=== PATIENT | female | born 1960 | race Caucasian/White ===

== ENCOUNTER 2021-01-27 16:26 | Outpatient (REF) | payer OTHER, SELFPAY ==
--- NOTE | ~2021-01-27 | CT_ITS ---
EXAMINATION: CT CHEST WITHOUT CONTRAST CLINICAL INFORMATION: Other nonspecific abnormal finding lung field COMPARISON: Previous chest x-ray most recent February [address] most recent October 2018 TECHNIQUE: Multidetector volumetric CT imaging of the chest was done. Axial MIP volume rendering provided. Sagittal and coronal reformatted images were obtained. This CT examination was performed using dose optimization techniques as appropriate, variously including the following: *Automated exposure control *Adjustment of mA and/or kV according to patient size (this includes techniques or standardized protocols for targeted exams where dose is matched to indication/reason for exam; i.e. 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 There is biapical pleural and parenchymal scarring, right greater than left. There is slight volume loss to the left upper lobe. There is an irregular parenchymal density probably representing scarring seen in the left upper lobe that is stable, for example axial image 165 series 5.. There is a new spiculated left lower lobe nodule suspicious for neoplasm. This measures 1 x 1.2 cm. There are small right upper lobe 3 mm nodule axial image 236 series 5 that is stable. There is a 3 mm right lower lobe nodule axial image 319 series 5 that is stable. There is a 4 mm right lower lobe nodule axial image 339 series 5 that is stable. No endobronchial or endotracheal lesion is seen. MEDIASTINUM: The mediastinum is normal. There are no enlarged mediastinal or hilar lymph nodes. PLEURA: There is no pleural effusion. No pleural mass or thickening. AXILLA: No lymphadenopathy. UPPER ABDOMEN: Unremarkable. OSSEOUS STRUCTURES: Unremarkable. CT/CT chest wo con IMPRESSION: New 1 x 1.2 cm spiculated left lower lobe pulmonary nodule suspicious for neoplasm. Severe. Stable volume loss and probable scarring in the left upper lobe. Stable small right upper and right lower lobe pulmonary nodules. Findings will be communicated by the [employer] work flow printed circuit photographer Tia Mobley on 01/28/2021.
== END 2021-01-27 16:27 | disposition home or self-care (01) ==
LOC: HO.CT 16:26
PROVIDERS: Visit Provider Internal Medicine Pulmonary Disease
DX: R91.8 Other nonspecific abnormal finding of lung field (principal)
CPT/HCPCS: 71250

== ENCOUNTER → 2021-03-09 14:39 | Outpatient (BNVA) | payer OTHER, SELFPAY | PROVIDERS: PCP Internal Medicine; Visit Provider Internal Medicine Pulmonary Disease ==

== ENCOUNTER 2021-03-22 16:04 | Outpatient (REF) | payer OTHER, SELFPAY ==
--- NOTE | 2021-03-22 17:48 | PFT_ITS ---
Forced vital capacity moderately reduced. FEV1, CPT15-63, and MVV are all markedly decreased. Post bronchodilator therapy, there is a small, but significant improvement in all the flow volumes. Total lung capacity is normal. Residual volume markedly increased. Diffusion capacity is markedly decreased. CONCLUSION: Very severe obstructive airway disorder. Minimal improvement after bronchodilator therapy is noted. Clinical correlation recommended. MD CB Pulliam/MICHAEL / [phone]
[2021-03-22 17:50] LABS: Hematocrit 48.2 % (37-47); Mean Corpuscular HGB Conc 33.2 g/dl (31.0-35.0); Mean Corpuscular Hemoglobin 31.6 pg (27.0-33.0); Mean Corpuscular Volume 95.3 fL (80-98); Mean Platelet Volume 11.7 fL (9.4-12.3); Platelet Count 218 X10*3/uL (160-400); Red Blood Count 5.06 X10*6/uL (4.20-5.50); Red Cell Distribution Width 13.1 % (11.0-16.0); White Blood Count 8.7 X10*3/uL (4.8-10.8)
[2021-03-22 18:04] LABS: Prothrombin Time 11.5 SEC (9.9-13.0)
== END 2021-03-22 16:05 | disposition home or self-care (01) ==
LOC: HO.RESP 16:04
PROVIDERS: Absent Provider Internal Medicine; PCP Internal Medicine; Visit Provider Internal Medicine Pulmonary Disease
DX: J44.9 Chronic obstructive pulmonary disease, unspecified (principal); R91.8 Other nonspecific abnormal finding of lung field
CPT/HCPCS: 36415; 85027; 85610; 94060; 94727; 94729

== ENCOUNTER 2021-03-23 09:21 | Outpatient (REF) | payer OTHER, SELFPAY ==
--- NOTE | ~2021-03-23 | PE_ITS ---
EXAMINATION: PET-CT SKULL TO THIGH CLINICAL INFORMATION: Spiculated lung nodule left lower lobe. COMPARISON: CT chest 01/27/2021 TECHNIQUE: Following intravenous administration of 13.9 mCi of FDG in left antecubital vein, a whole-body PET emission scan was obtained approximately 90 minutes later. 3.[address] transmission scan was obtained for correlative imaging without oral and IV contrast. Serum baseline glucose measures 98 mg/dL. DLP 223 mGy-cm. FINDINGS: SKULL AND NECK: There is no abnormal metabolic activity seen in the visualized brain parenchyma or the neck. Normal activity is seen in bilateral parotid and thyroid glands. CHEST: There is no abnormal metabolic activity seen in the lung parenchyma. Spiculated lesion in the left lower lobe measuring 1.[address] 01/27/2021 appears 7 mm linear density in left lower lobe on axial image 164/102. Previously visualized 3 mm nodule right lower lobe on axial CT image 169 and 172/102 are not metabolically active or smaller on CT. A triangular-shaped nodule in the right upper lobe on the previous study is also smaller measuring 2 mm on slice 189/102. No abnormal metabolic activity is seen. There is no metabolic activity seen in the mediastinum or the axilla. Normal metabolic activity is seen in the left ventricle. There are diffuse emphysematous changes in the lungs. No abnormal mediastinal or axillary lymph nodes seen. There are benign small shotty lymph nodes in the pretracheal space. The thoracic aorta is normal caliber. Thyroid lobes are symmetric and normal. ABDOMEN AND PELVIS: No abnormal activity is seen in the abdomen and pelvis. Normal metabolic activity is seen in the kidney pelvis and ureters bilaterally. On CT imaging, the visualized liver, spleen, pancreas, and bilateral adrenal glands are unremarkable. There are no radiopaque gallstones. The liver is normal density and size and appears unremarkable. PELVIS: No abnormal metabolic activity is seen. No abnormality is seen on CT abdomen exam. MSK: Unremarkable. PET/PET CT fusion skull to thigh IMPRESSION: No abnormal metabolic activity seen in the chest nodules or the mediastinum to suspect any primary active lung nodule or adenopathy. The 2 right lower lobe nodules and solitary right upper lobe nodule and the left upper lobe nodule are not visualized on PET study. They are small in size on the present CT exam.
== END 2021-03-23 09:22 | disposition home or self-care (01) ==
LOC: HO.PET 09:21
PROVIDERS: PCP Internal Medicine; Visit Provider Internal Medicine Pulmonary Disease
DX: Z13.89 Encounter for screening for other disorder (principal)

== ENCOUNTER 2021-04-01 11:14 | Day surgery (SDC) | payer OTHER, SELFPAY ==
--- NOTE | ~2021-04-01 | CT_ITS ---
EXAMINATION: CT CHEST WITHOUT CONTRAST CLINICAL INFORMATION: Prebiopsy scan. Left lower lobe lung nodule COMPARISON: None CT PET 03/23/2021 and chest exam 01/27/2021. TECHNIQUE: Following explaining procedure, benefits and risk, a written consent was obtained. Patient was placed and right decubitus view and preliminary imaging was obtained. The exam was canceled as there is significant improvement in the left lower lobe pulmonary nodule. Also there is no metabolic activity seen on the recent PET study 03/23/2021. The exam was canceled. This CT examination was performed using dose optimization techniques as appropriate, variously including the following: *Automated exposure control *Adjustment of mA and/or kV according to patient size (this includes techniques or standardized protocols for targeted exams where dose is matched to indication/reason for exam; i.e. extremities or head) *Use of iterative reconstruction technique DLP: 38 mGy-cm CT/CT chest wo con FINDINGS/IMPRESSION: On preliminary CT imaging there is no left lower lobe nodules seen. There is a thin linear stranding visualized. No corresponding PET abnormality seen on recent performed exam 03/23/2021. The biopsy was canceled. The results were notified to Dr. Helder ordoñez. A follow-up CT chest in 3 months will be obtained. The patient was subsequently discharged
[2021-04-01 07:50] VITALS: BMI 19.2
[2021-04-01 11:34] LABS: MANUAL DIFF FLAG NO
[2021-04-01 11:37] LABS: Basophils Absolute Auto 0.1 X10*3/uL (0.0-0.2); Basophils Percent Auto 0.6 % (0-2); Eosinophils Absolute Auto 0.4 X10*3/uL (0.0-0.4); Eosinophils Percent Auto 4.3 % (0-4); Hematocrit 47.4 % (37-47); Hemoglobin 15.8 g/dl (12.0-16.0); Imm Gran Abs Auto 0.03 X10*3/uL (0.00-0.03); Imm Gran Pct Auto 0.4 % (0.0-0.4); Lymphocytes Absolute Auto 2.9 X10*3/uL (1.2-4.9); Lymphocytes Percent Auto 33.9 % (20-40); Mean Corpuscular HGB Conc 33.3 g/dl (31.0-35.0); Mean Corpuscular Hemoglobin 31.5 pg (27.0-33.0); Mean Corpuscular Volume 94.6 fL (80-98); Mean Platelet Volume 10.8 fL (9.4-12.3); Monocytes Absolute Auto 0.6 X10*3/uL (0.1-1.2); Monocytes Percent Auto 7.2 % (2-11); Neutrophils Absolute Auto 4.5 X10*3/uL (2.0-8.3); Neutrophils Percent Auto 53.6 % (45-73); Platelet Count 247 X10*3/uL (160-400); Red Blood Count 5.01 X10*6/uL (4.20-5.50); Red Cell Distribution Width 13.1 % (11.0-16.0); White Blood Count 8.4 X10*3/uL (4.8-10.8)
[2021-04-01 11:59] LABS: Prothrombin Time 10.9 SEC (9.9-13.0)
[2021-04-01 12:02] LABS: Partial Thromboplastin Time 33.8 SEC (24.1-38.0)
[2021-04-01 13:50] VITALS: BP 122/85; PULSE 90; RESP 20; TEMP 36.2; O2SAT 96
== END 2021-04-01 14:10 | disposition home or self-care (01) ==
LOC: HO.SSS 11:15
PROVIDERS: Radiology Diagnostic Radiology; PCP Internal Medicine; Visit Provider Internal Medicine Pulmonary Disease
DX: R91.1 Solitary pulmonary nodule (principal); J44.9 Chronic obstructive pulmonary disease, unspecified; Z99.81 Dependence on supplemental oxygen; Z79.51 Long term (current) use of inhaled steroids
CPT/HCPCS: 36415; 71250; 85025; 85610; 85730; J2250; J3010

== ENCOUNTER 2021-09-22 15:58 | Outpatient (REF) | payer OTHER, SELFPAY ==
--- NOTE | ~2021-09-22 | MM_ITS ---
EXAMINATION: MM SCREENING DIGITAL BREAST TOMOSYNTHESIS, BILATERAL CLINICAL INFORMATION: Screening. Asymptomatic. The lifetime risk of breast cancer based on the Tyrer-Cuzick Model is 12%. COMPARISON: Mammography: 04/13/2020, 03/10/2016, 07/28/2012 TECHNIQUE: Digital breast tomosynthesis is performed in both the craniocaudal and mediolateral oblique views along with computer-aided detection (CAD). Synthesized 2D images are generated from the tomosynthesis. FINDINGS: The breasts are heterogeneously dense, which may obscure small masses (ACR BI-RADS breast composition Category c). There are no significant masses, abnormal calcifications, or other abnormalities. Parenchymal pattern is similar to prior studies. Scattered minor asymmetries are stable. There is no developing density or architectural abnormality. Again, there are scattered punctate round calcifications greater upper quadrants. The axilla and skin contours are unremarkable. No significant changes. MM/MM tomosynthesis screening BI IMPRESSION: No significant changes from prior exams. ASSESSMENT: BI-RADS 2: Benign RECOMMENDATION: Routine annual mammography screening. This patient's information was entered into a reminder system with a target due date for their next mammogram.
== END 2021-09-22 15:59 | disposition home or self-care (01) ==
LOC: HO.MAMMO 15:58
PROVIDERS: PCP Internal Medicine; Visit Provider Internal Medicine
DX: Z12.31 Encounter for screening mammogram for malignant neoplasm of breast (principal)
CPT/HCPCS: 77063; 77067

== ENCOUNTER 2022-03-16 13:19 | Outpatient (REF) | payer OTHER, SELFPAY ==
--- NOTE | ~2022-03-16 | CT_ITS ---
EXAMINATION: CT CHEST WITHOUT CONTRAST CLINICAL INFORMATION: Follow-up pulmonary nodules COMPARISON: Previous chest CT most recent March 2021 TECHNIQUE: Multidetector volumetric CT imaging of the chest was done. Axial MIP volume rendering provided. Sagittal and coronal reformatted images were obtained. This CT examination was performed using dose optimization techniques as appropriate, variously including the following: *Automated exposure control *Adjustment of mA and/or kV according to patient size (this includes techniques or standardized protocols for targeted exams where dose is matched to indication/reason for exam; i.e. 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 LUNGS: There is evidence of severe emphysema. There is biapical pleural and parenchymal scarring. There is linear scarring seen in the posterior lateral left upper lobe that is stable. There is a 4 mm calcified right upper lobe nodule axial image 76 series 5 that is stable. There is a 3 mm lower lobe axial image 252 series 5 that is stable. There are 2 new right lower lobe nodules measuring 4 mm axial image 296 series 5 and 5 mm axial image 309 series 5. MEDIASTINUM: Mild coronary artery calcification. The mediastinum is otherwise normal. PLEURA: There is no pleural effusion. No pleural mass or thickening. AXILLA: No lymphadenopathy. UPPER ABDOMEN: There is a stone in the upper pole of the left kidney measuring 4 mm. OSSEOUS STRUCTURES: Old left-sided rib fractures. CT/CT chest wo con IMPRESSION: Severe emphysema. Stable biapical and left upper lobe scarring. 2 new right lower lobe nodules largest measuring 5 mm. Otherwise small pulmonary nodules are stable. Mild coronary artery calcification. Chest CT follow-up recommended. Fleischner guidelines were followed.
== END 2022-03-16 13:20 | disposition home or self-care (01) ==
LOC: HO.CT 13:19
PROVIDERS: Visit Provider Internal Medicine Pulmonary Disease
DX: R91.8 Other nonspecific abnormal finding of lung field (principal)
CPT/HCPCS: 71250

== ENCOUNTER → 2022-03-28 15:25 | Outpatient (REF) | payer OTHER, SELFPAY | LOC: HO.SL 15:25 | PROVIDERS: Visit Provider Internal Medicine Pulmonary Disease | DX: G47.33 Obstructive sleep apnea (adult) (pediatric) (principal) | CPT/HCPCS: 95806 ==

== ENCOUNTER 2022-07-21 16:27 | Outpatient (REF) | payer OTHER, SELFPAY ==
--- NOTE | ~2022-07-21 | CT_ITS ---
EXAMINATION: CT CHEST WITHOUT CONTRAST CLINICAL INFORMATION: Follow-up pulmonary nodules COMPARISON: Previous chest CT scans most recent March 2022 TECHNIQUE: Multidetector volumetric CT imaging of the chest was done. Axial MIP volume rendering provided. Sagittal and coronal reformatted images were obtained. This CT examination was performed using dose optimization techniques as appropriate, variously including the following: *Automated exposure control *Adjustment of mA and/or kV according to patient size (this includes techniques or standardized protocols for targeted exams where dose is matched to indication/reason for exam; i.e. 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 LUNGS: There is evidence of severe emphysema. There is biapical pleural and parenchymal scarring. There is linear scarring seen in the posterior lateral left upper lobe that is stable. There are small pulmonary nodules that are stable from most recent exam March 2022, largest measuring 5 mm in the right lower lobe axial image 385 series 5. No new pulmonary nodule. No endobronchial or endotracheal lesion. MEDIASTINUM: The mediastinum is normal. CORONARY ARTERY CALCIFICATION: Mild PLEURA: There is no pleural effusion. No pleural mass or thickening. AXILLA: No lymphadenopathy. UPPER ABDOMEN: Small left renal stone. OSSEOUS STRUCTURES: Old left rib fractures. CT/CT chest wo IV con IMPRESSION: Severe emphysema. Stable pulmonary nodules from most recent exam March 2022. Fleischner guidelines were followed.
== END 2022-07-21 16:28 | disposition home or self-care (01) ==
LOC: HO.CT 16:27
PROVIDERS: Visit Provider Internal Medicine Pulmonary Disease
DX: R91.8 Other nonspecific abnormal finding of lung field (principal)
CPT/HCPCS: 71250

== ENCOUNTER 2022-07-21 16:50 | Emergency (ER) | payer OTHER, SELFPAY | END 2022-07-21 18:13 | disposition left against medical advice (07) | PROVIDERS: Emergency Provider Emergency Medicine; PCP Internal Medicine | DX: R06.02 Shortness of breath (principal) ==

== ENCOUNTER → 2022-07-22 13:46 | Outpatient (BNVA) | payer OTHER, SELFPAY | PROVIDERS: PCP Internal Medicine; Visit Provider Internal Medicine Pulmonary Disease | DX: J44.9 Chronic obstructive pulmonary disease, unspecified (principal); F41.1 Generalized anxiety disorder; R91.8 Other nonspecific abnormal finding of lung field; Z99.81 Dependence on supplemental oxygen | CPT/HCPCS: 94640 ==

== ENCOUNTER → 2023-02-02 14:40 | Outpatient (BNVA) | payer OTHER, SELFPAY | PROVIDERS: PCP Internal Medicine; Visit Provider Dietitian, Registered | DX: R63.4 Abnormal weight loss (principal); Z68.1 Body mass index [BMI] 19.9 or less, adult; Z71.3 Dietary counseling and surveillance | CPT/HCPCS: 97802 ==

== ENCOUNTER 2023-02-21 14:23 | Outpatient (AMB) | payer OTHER, SELFPAY ==
--- NOTE | 2023-02-21 14:26 | MHC.OFFVIS ---
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 Patient returns to follow-up complaining of slowly worsening dyspnea despite using Spiriva, Symbicort, theophylline, duo nebs, and albuterol MDI.?? Her pulmonary nodule biopsy was canceled by Interventional Radiology as it was negative on PET scan. She does complain of significant nausea and associated poor appetite and weight loss. PFSH Family History Other Mental health disorder Substance use disorder Social History Housing: House Alcohol intake: current Alcohol intake frequency: a few times a week Patient Tobacco Use Status: Current everyday Tobacco user Cigarette Packs Per Day: 0.5 e-Cigarette/Vaping Use: Never Used service: No Current occupational status: unemployed Cognitive needs: No Hearing needs: No Vision needs: No Review of Systems Const Denies daytime sleepiness, Denies excessive sweating, Denies fatigue, Denies fever(s), Denies lethargy, Denies malaise, Denies night sweats, Denies snoring and Reports weight loss Eyes Denies blurry vision and Denies itchy eyes ENT Denies nasal congestion, Denies post nasal drip, Denies sinus pain, Denies sinus pressure and Denies other ( Thrush) Card Denies chest pain, Denies pedal edema, Denies dyspnea, Reports dyspnea on exertion, Denies orthopnea and Denies paroxysmal nocturnal dyspnea Resp Denies cough, Denies hemoptysis, Denies excessive phlegm production, Denies dyspnea, Reports dyspnea on exertion, Denies snoring and Denies wheezing GI Denies abdominal pain and Denies heartburn Musc Denies myalgias, Denies arthralgias and Denies joint swelling Skin/Breast Denies rash Neuro Denies memory loss and Denies seizure-like activity Psych Denies abnormal sleep pattern, Denies anxiety and Denies memory loss Endo Denies excessive sweating, Denies fatigue and Denies heat intolerance Michael/Lymph Denies easy bruising Aller/Immun Denies itchy eyes, Denies seasonal rhinorrhea and Denies wheezing Physical Exam Vital Signs: Last Vital Signs Pulse 80 02/21/23 14:30 BP 90/88 02/21/23 14:30 Pulse Ox 98 02/21/23 14:30 BMI result Body Mass Index 12.8 Const General: no acute distress and alert Nutritional Appearance: cachectic Orientation/consciousness: Other orientation findings ( oriented) HEENT Head: Yes atraumatic Eyes General: appearance normal, both eyes and all related structures Sclerae: sclerae normal EOM: EOMs intact bilaterally Neck Neck: Yes supple Lymphatic: no lymphadenopathy noted Resp Effort & Inspection: normal respiratory effort and no use of accessory muscles Auscultation: clear to auscultation bilaterally Cardio Rate: regular rate Rhythm: regular rhythm Heart sounds: no gallops, no murmurs and no rubs Skin General skin exam: other ( warm) Extrem General: No clubbing, No cyanosis and No edema Assessment & Plan Assessment & Plan (1) COPD, severe: Code(s): J44.9 - Chronic obstructive pulmonary disease, unspecified Plan: End-stage COPD on maximum medical therapy. Continue Symbicort, Spiriva, duo nebs, theophylline, albuterol MDI. Clonazepam for air trapping component. Dronabinol for cachexia. Zofran for nausea. (2) Oxygen dependent: Code(s): Z99.81 - Dependence on supplemental oxygen Plan: Supplemental oxygen dependent. Continue supplemental oxygen to maintain O2 saturation of 88-93%. (3) Pulmonary nodules: Code(s): R91.8 - Other nonspecific abnormal finding of lung field Plan: Follow-up CT chest pending for April of 2023. Medications: New ondansetron 4 mg PO Q8H 30 days PRN 30 tabs 6RF nausea and vomiting dronabinol administer before lunch and evening meal/dinner 5 mg PO BID 30 days 60 caps 3RF Refilled Symbicort 160-4.5 mcg/actuation (budesonide-formoterol) 2 inhalations PO Q12H 90 days 3 multiple units 3RF NS J44.9 - Chronic obstructive pulmonary disease, unspecified Coding Level of Care Code Est Pt Level 4 (49917) Diagnoses COPD, severe J44.9 Oxygen dependent Z99.81 Pulmonary nodules R91.8
[2023-02-21 14:30] VITALS: BP 90/88; PULSE 80; O2SAT 98; BMI 12.8
[2023-02-21 16:39] VITALS: PULSE 108; O2SAT 94
== END 2023-02-21 15:05 | disposition home or self-care (01) ==
PROVIDERS: PCP Internal Medicine; Visit Provider Internal Medicine Pulmonary Disease
DX: J44.9 Chronic obstructive pulmonary disease, unspecified (principal); Z99.81 Dependence on supplemental oxygen; R91.8 Other nonspecific abnormal finding of lung field
CPT/HCPCS: 94618; 99214

== ENCOUNTER → 2023-02-21 14:23 | Outpatient (BNVA) | payer OTHER, SELFPAY | PROVIDERS: PCP Internal Medicine; Visit Provider Internal Medicine Pulmonary Disease | DX: J44.9 Chronic obstructive pulmonary disease, unspecified (principal); R91.8 Other nonspecific abnormal finding of lung field; Z79.899 Other long term (current) drug therapy; Z99.81 Dependence on supplemental oxygen | CPT/HCPCS: 94618 ==

== ENCOUNTER 2023-03-08 13:28 | Outpatient (AMB) | payer OTHER, SELFPAY ==
--- NOTE | 2023-03-08 13:30 | A.OFFPC_ITS ---
Vital Signs 03/08/23 13:34 Height 5 ft 2 in Weight 69 lb 4 oz BMI 12.7 BP 112/72 Blood Pressure Location Rt brachial Position Sitting Pulse 100 Pulse Source Pulse Oximeter Pulse Oximetry (%) 95 Oxygen Delivery Method Nasal Cannula Intake Visit Reasons: Wieght Loss/ UTI Allergies morphine Allergy (Unknown, Verified 03/08/23 13:30) unknown No Known Allergies [No Known Allergies*] Allergy (Verified 03/08/23 13:30) morphine Allergy (Unknown, Uncoded 06/15/21 15:53) bad reaction Medication List - Last Reconciled 03/08/23 by Domingo Garcia MD albuterol sulfate 90 mcg/actuation 2 inhalations PO Q4-6H PRN buspirone 10 mg PO BID 30 days clonazepam 0.5 mg PO BID PRN 30 days dronabinol 5 mg PO BID 30 days food supplemt, lactose-reduced (Ensure High Protein oral liquid) 1 ea PO TID 30 days ipratropium-albuterol 0.5 mg-3 mg(2.5 mg base)/3 mL 3 mL inhalation TID 30 days levofloxacin 750 mg PO DAILY 7 days ondansetron 4 mg PO Q8H PRN 30 days Spiriva with HandiHaler (tiotropium bromide) 1 cap inhalation DAILY 90 days NS Symbicort 160-4.5 mcg/actuation (budesonide-formoterol) 2 inhalations PO Q12H 90 days NS theophylline ER 400 mg PO DAILY Tobacco use date assessed: 03/08/23 Dental Screening Dental Screen Date: 03/08/23 Did you have a dental visit in the last 12 months?: Yes Did you have a dental problem in the last 6 months where you did not have access to dental care?: No Was dental information given to patient?: No HPI Wieght Loss/ UTI HPI Details Patient is a 62-year-old female with severe COPD oxygen dependent failure to thrive losing weight Came in today feeling worse for the past 3 weeks with nausea and headache. On examination she has mild epigastric discomfort as well with pressure. She is taking no PPI She does have a script for Zofran which is helping with the nausea. There is no diarrhea there is no fever there is no chest pain. I have ordered labs for the patient she has not had any metabolic profile since 2019 and has not seen me in over 1 year. I have ordered urinalysis as well as she is complaining of very concentrated urine I would recommend to push more fluids I have sent omeprazole to be taken once daily on empty stomach Sumatriptan sent for headache patient have a history of migraine headaches. Follow-up 3 weeks [facility] Family History Other Mental health disorder Substance use disorder Social History Housing: House Alcohol intake: current Alcohol intake frequency: a few times a week Patient Tobacco Use Status: Current everyday Tobacco user Cigarette Packs Per Day: 0.5 e-Cigarette/Vaping Use: Never Used service: No Current occupational status: unemployed Cognitive needs: No Hearing needs: No Vision needs: No Questionnaire Thrive Questionnaire Date Thrive assessed: 06/15/21 AUDIT C Alcohol Use Questionnaire (AUDIT-C) 1. How often do you have a drink containing alcohol?: Never 3. How often do you have six or more drinks on one occasion?: Never Total Score: 0 Score Reviewed/Action Taken: Yes Review of Systems Const Denies chills and Denies fever(s) ENT Denies epistaxis and Denies nasal discharge Card Denies chest pain Resp Denies hemoptysis GI Denies diarrhea Skin/Breast Denies rash Neuro Reports no additional complaints Psych Reports no additional complaints Endo Reports no additional complaints Physical exam (Primary Care) Vital Signs: Last Vital Signs Pulse 100 03/08/23 13:34 BP 112/72 03/08/23 13:34 Pulse Ox 95 03/08/23 13:34 Oxygen Delivery Method Nasal Cannula 03/08/23 13:34 BMI result Body Mass Index 12.7 Tobacco/Smoking Status: Tobacco use Status Tobacco use date assessed 03/08/23 03/08/23 13:32 Patient Tobacco Use Status Current everyday Tobacco 03/08/23 13:32 e-Cigarette/Vaping Use Never Used 03/08/23 13:32 Thrive Assessment: Date of Thrive Assessment Date Thrive assessed 06/15/21 03/08/23 13:32 Const Other: Very thin female in mild respiratory distress which is a baseline for the patient no acute distress General: cooperative Orientation/consciousness: patient oriented x3 HENMT Head: Yes normocephalic Eyes General: appearance normal, both eyes and all related structures Neck Neck: Yes supple Resp Effort & Inspection: no stridor Cardio Rhythm: regular rhythm Heart sounds: S1 normal heart sound present and S2 normal heart sound present GI Other: Epigastric discomfort with pressure bowel sound positive no guarding no rebound Skin General skin exam: turgor normal Neuro General: patient oriented x3, tone normal and moves all extremities Extrem Right lower extremity: no edema Left lower extremity: no edema Assessment and Plan Assessment & Plan (1) Epigastric pain: Code(s): R10.13 - Epigastric pain (2) Failure to thrive in adult: Code(s): R62.7 - Adult failure to thrive (3) COPD, severe: Code(s): J44.9 - Chronic obstructive pulmonary disease, unspecified (4) Anxiety, generalized: Code(s): F41.1 - Generalized anxiety disorder (5) Oxygen dependent: Code(s): Z99.81 - Dependence on supplemental oxygen (6) Nausea: Code(s): R11.0 - Nausea (7) Migraine headache: Code(s): G43.909 - Migraine, unspecified, not intractable, without status migrainosus Plan Patient is a 62-year-old female with severe COPD oxygen dependent failure to thrive losing weight Came in today feeling worse for the past 3 weeks with nausea and headache. On examination she has mild epigastric discomfort as well with pressure. She is taking no PPI She does have a script for Zofran which is helping with the nausea. There is no diarrhea there is no fever there is no chest pain. I have ordered labs for the patient she has not had any metabolic profile since 2019 and has not seen me in over 1 year. I have ordered urinalysis as well as she is complaining of very concentrated urine I would recommend to push more fluids I have sent omeprazole to be taken once daily on empty stomach Sumatriptan sent for headache patient have a history of migraine headaches. Follow-up 3 weeks Orders: Orders Vitamin B12 Today F41.1 - Generalized anxiety disorder, G43.909 - Migraine, unspecified, not intractable, without status migrainosus, J44.9 - Chronic obstructive pulmonary disease, unspecified, R10.13 - Epigastric pain, R11.0 - Nausea, R62.7 - Adult failure to thrive, Z99.81 - Dependence on supplemental oxygen Comprehensive Met. Panel Today F41.1 - Generalized anxiety disorder, G43.909 - Migraine, unspecified, not intractable, without status migrainosus, J44.9 - Chronic obstructive pulmonary disease, unspecified, R10.13 - Epigastric pain, R11.0 - Nausea, R62.7 - Adult failure to thrive, Z99.81 - Dependence on supplemental oxygen LDL Cholesterol Direct Today F41.1 - Generalized anxiety disorder, G43.909 - Migraine, unspecified, not intractable, without status migrainosus, J44.9 - Chronic obstructive pulmonary disease, unspecified, R10.13 - Epigastric pain, R11.0 - Nausea, R62.7 - Adult failure to thrive, Z99.81 - Dependence on supplemental oxygen TSH reflex Free T4 Today F41.1 - Generalized anxiety disorder, G43.909 - Migraine, unspecified, not intractable, without status migrainosus, J44.9 - Ch ronic obstructive pulmonary disease, unspecified, R10.13 - Epigastric pain, R11.0 - Nausea, R62.7 - Adult failure to thrive, Z99.81 - Dependence on supplemental oxygen Vitamin D 25-OH (D2 and D3) Today F41.1 - Generalized anxiety disorder, G43.909 - Migraine, unspecified, not intractable, without status migrainosus, J44.9 - Chronic obstructive pulmonary disease, unspecified, R10.13 - Epigastric pain, R11.0 - Nausea, R62.7 - Adult failure to thrive, Z99.81 - Dependence on supplemental oxygen Complete Blood Count Auto Diff Today F41.1 - Generalized anxiety disorder, G43.909 - Migraine, unspecified, not intractable, without status migrainosus, J44.9 - Chronic obstructive pulmonary disease, unspecified, R10.13 - Epigastric pain, R11.0 - Nausea, R62.7 - Adult failure to thrive, Z99.81 - Dependence on supplemental oxygen UA CC w/rflx Micro + Cult Today R82.90 - Unspecified abnormal findings in urine Medications: New sumatriptan succinate Take as soon as headache begins 25 mg PO ONCE PRN 10 tabs 0RF migraine headache 30 days omeprazole 20 mg PO DAILY 90 caps 0RF Coding Level of Care Code Est Pt Level 4 (18973) Diagnoses Epigastric pain R10.13 Failure to thrive in adult R62.7 COPD, severe J44.9 Anxiety, generalized F41.1 Oxygen dependent Z99.81 Nausea R11.0 Migraine headache G43.909
[2023-03-08 13:34] VITALS: BP 112/72; PULSE 100; O2SAT 95; BMI 12.7
== END 2023-03-08 14:20 | disposition home or self-care (01) ==
PROVIDERS: PCP Internal Medicine; Visit Provider Internal Medicine
DX: R10.13 Epigastric pain (principal); R62.7 Adult failure to thrive; J44.9 Chronic obstructive pulmonary disease, unspecified; G43.909 Migraine, unspecified, not intractable, without status migrainosus; F41.1 Generalized anxiety disorder; Z99.81 Dependence on supplemental oxygen; R11.0 Nausea
CPT/HCPCS: 99214

== ENCOUNTER 2023-03-08 13:51 | Outpatient (REF) | payer OTHER, SELFPAY ==
[2023-03-08 16:05] LABS: MANUAL DIFF FLAG NO
[2023-03-08 16:47] LABS: Basophils Percent Auto 0.4 % (0-2); Eosinophils Absolute Auto 0.1 X10*3/uL (0.0-0.4); Eosinophils Percent Auto 0.5 % (0-4); Imm Gran Abs Auto 0.03 X10*3/uL (0.00-0.03); Imm Gran Pct Auto 0.3 % (0.0-0.4); Lymphocytes Absolute Auto 1.5 X10*3/uL (1.2-4.9); Lymphocytes Percent Auto 16.3 % (20-40); Mean Corpuscular HGB Conc 31.4 g/dl (31.0-35.0); Mean Corpuscular Hemoglobin 30.7 pg (27.0-33.0); Mean Corpuscular Volume 97.9 fL (80.0-98.0); Mean Platelet Volume 12.2 fL (9.4-12.3); Monocytes Absolute Auto 0.6 X10*3/uL (0.1-1.2); Monocytes Percent Auto 6.7 % (2-11); Neutrophils Percent Auto 75.8 % (45-73); Platelet Count 251 X10*3/uL (160-400); Red Blood Count 5.21 X10*6/uL (4.20-5.50); Red Cell Distribution Width 14.5 % (11.0-16.0); White Blood Count 9.3 X10*3/uL (4.8-10.8)
[2023-03-08 17:31] LABS: Alanine Aminotransferase 19 U/L (0-31); Albumin Level 4.3 g/dL (3.5-5.0); Alkaline Phosphatase 43 U/L (39-117); Anion Gap 19 (12-20); Aspartate Amino Transferase 25 U/L (5-31); Bilirubin Total 0.4 mg/dL (0.0-1.0); Blood Urea Nitrogen 7 mg/dL (9-16); Calcium 9.6 mg/dL (8.4-10.2); Carbon Dioxide 28 mmol/L (22-29); Chloride 97 mmol/L (96-108); Estimated Glomerular Filt Rate > 60; Glucose Random 96 mg/dL (60-115); Potassium 3.9 mmol/L (3.3-5.1); Sodium 140 mmol/L (135-145); TSH reflex Free T4 0.67 uIU/mL (0.32-4.0); Total Protein 7.1 g/dL (6.5-8.0)
[2023-03-08 17:32] LABS: Vitamin B12 490 pg/mL (200-900)
[2023-03-09 11:37] LABS: Appearance Urine Clear; Color Urine Yellow; Glucose Urine UA Negative (Negative); Leukocyte Esterase Urine Negative (Negative); Nitrite Urine Negative (Negative); UMIC TRIGGER UACC YES; Urine Blood Negative (Negative); Urine Ketones Negative (Negative); Urine Protein 30 (1+) mg/dL (Neg-Trace)
[2023-03-09 11:40] LABS: Bacteria Urine None Seen (None Seen); Hyaline Casts Urine 0-2 /LPF (0-2); Squamous Epithelial Cell Urine 0-2 /HPF (0-2); WBC Urine 0-5 /HPF (0-5)
[2023-03-10 05:54] LABS: LDL Cholesterol Direct 162 mg/dL (<100)
[2023-03-13 16:08] LABS: Vitamin D 25-OH, D2 <4 ng/mL; Vitamin D 25-OH, D3 17 ng/mL; Vitamin D 25-OH, Total 17 ng/mL (30-100)
== END 2023-03-08 13:52 | disposition home or self-care (01) ==
LOC: HO.HMGCLDS 13:51
PROVIDERS: PCP Internal Medicine; Visit Provider Internal Medicine
DX: F41.1 Generalized anxiety disorder (principal); G43.909 Migraine, unspecified, not intractable, without status migrainosus; J44.9 Chronic obstructive pulmonary disease, unspecified; R10.13 Epigastric pain; R11.0 Nausea; R62.7 Adult failure to thrive; R82.90 Unspecified abnormal findings in urine; Z99.81 Dependence on supplemental oxygen
CPT/HCPCS: 36415; 80053; 81001; 82306; 82607; 83721; 84443; 85025

== ENCOUNTER 2023-04-04 12:57 | Outpatient (REF) | payer OTHER, SELFPAY ==
--- NOTE | ~2023-04-04 | CT_ITS ---
EXAMINATION: CT CHEST WITHOUT CONTRAST CLINICAL INFORMATION: Follow-up lung nodules COMPARISON: Thoracic CT dating to 01/27/2021, most recent 07/21/2022 TECHNIQUE: Multidetector volumetric CT imaging of the chest was done. Axial MIP volume rendering provided. Sagittal and coronal reformatted images were obtained. This CT examination was performed using dose optimization techniques as appropriate, variously including the following: *Automated exposure control *Adjustment of mA and/or kV according to patient size (this includes techniques or standardized protocols for targeted exams where dose is matched to indication/reason for exam; i.e. extremities or head) *Use of iterative reconstruction technique DLP: 55 mGy-cm FINDINGS: HOME [employer]: Marked hyperinflation with lucency in the upper lung zones and retrosternal space consistent with COPD. LUNGS: Severe centrilobular emphysema is again evident. Apical pleural scarring is stable. Coarse subpleural opacities in the left upper lobe are stable. There is a new 5 mm irregular nodule in the right middle lobe, series 5 image 323. A 21 x 10 mm peribronchial irregular nodular opacity in the left upper lobe, reference maximum intensity projection image 37, is stable. A 6 x 3 mm nodule in the right lower lobe apical segment is unchanged since 01/27/2021. Calcified right upper lobe and right middle lobe granulomata are stable. Scattered additional tiny subpleural nodules best visualized on the maximum intensity projection images are unchanged as well. No new mass, nodule or consolidation has developed. MEDIASTINUM: There is no mediastinal mass or adenopathy. A precarinal node measuring 8 mm in short axis is unchanged since 07/21/2022, but larger than on 01/27/2021 when it measured 3 mm in short axis. No hilar adenopathy is evident. There are mild coronary artery calcifications. The ascending thoracic aorta measures 3.2 cm, unchanged. CORONARY ARTERY CALCIFICATION: None visualized on this study. PLEURA: There is no pleural effusion. No pleural mass or thickening. AXILLA: No lymphadenopathy. UPPER ABDOMEN: Unremarkable. OSSEOUS STRUCTURES: Unremarkable. CT/CT chest wo IV con IMPRESSION: 1. Severe emphysema, with multiple bilateral nodular opacities, largely unchanged. There is, however, a new nonspecific 5 mm nodule in the right middle lobe. Given the background of underlying lung disease and multiple other nodules, follow-up thoracic CT in 6 months is recommended. 2. No other new disease or interval change. Fleischner guidelines were followed.
[2023-04-04 14:51] LABS: Appearance Urine Cloudy; Color Urine Yellow; Glucose Urine UA Negative (Negative); Leukocyte Esterase Urine Moderate (2+) (Negative); Nitrite Urine Negative (Negative); Specific Gravity - Urine 1.015 (1.005-1.025); UMIC TRIGGER UACC YES; Urine Blood Negative (Negative); Urine Ketones Negative (Negative); Urine Protein 100 (2+) mg/dL (Neg-Trace)
[2023-04-04 15:14] LABS: Bacteria Urine 3+ (None Seen); Hyaline Casts Urine 0-2 /LPF (0-2); RBC Urine 0-2 /HPF (0-2); Squamous Epithelial Cell Urine >20 /HPF (0-2); UACC Culture Trigger YES
== END 2023-04-04 12:58 | disposition home or self-care (01) ==
LOC: HO.CT 12:57
PROVIDERS: PCP Internal Medicine; Visit Provider Internal Medicine Pulmonary Disease
DX: R91.8 Other nonspecific abnormal finding of lung field (principal); R82.90 Unspecified abnormal findings in urine
CPT/HCPCS: 71250; 81001; 87086

== ENCOUNTER 2023-04-28 13:50 | Outpatient (AMB) | payer OTHER, SELFPAY ==
[2023-04-28 13:58] VITALS: BP 98/60; PULSE 112; O2SAT 86; BMI 12.9
--- NOTE | 2023-04-28 13:58 | MHC.OFFVIS ---
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 Patient returns to follow-up complaining of slowly worsening dyspnea despite using Spiriva, Symbicort, theophylline, duo nebs, and albuterol MDI. Her pulmonary nodule biopsy was canceled by Interventional Radiology as it was negative on PET scan. At the last office visit patient started on dronabinol with some improvement in appetite. PFSH Family History Other Mental health disorder Substance use disorder Social History Housing: House Alcohol intake: current Alcohol intake frequency: a few times a week Patient Tobacco Use Status: Current everyday Tobacco user Cigarette Packs Per Day: 0.5 e-Cigarette/Vaping Use: Never Used service: No Current occupational status: unemployed Cognitive needs: No Hearing needs: No Vision needs: No Review of Systems Const Denies daytime sleepiness, Denies excessive sweating, Denies fatigue, Denies fever(s), Denies lethargy, Denies malaise, Denies night sweats, Denies snoring and Reports weight loss Eyes Denies blurry vision and Denies itchy eyes ENT Denies nasal congestion, Denies post nasal drip, Denies sinus pain, Denies sinus pressure and Denies other ( Thrush) Card Denies chest pain, Denies pedal edema, Denies dyspnea, Reports dyspnea on exertion, Denies orthopnea and Denies paroxysmal nocturnal dyspnea Resp Denies cough, Denies hemoptysis, Denies excessive phlegm production, Denies dyspnea, Reports dyspnea on exertion, Denies snoring and Denies wheezing GI Denies abdominal pain and Denies heartburn Musc Denies myalgias, Denies arthralgias and Denies joint swelling Skin/Breast Denies rash Neuro Denies memory loss and Denies seizure-like activity Psych Denies abnormal sleep pattern, Denies anxiety and Denies memory loss Endo Denies excessive sweating, Denies fatigue and Denies heat intolerance Michael/Lymph Denies easy bruising Aller/Immun Denies itchy eyes, Denies seasonal rhinorrhea and Denies wheezing Physical Exam Vital Signs: Last Vital Signs Pulse 112 H 04/28/23 13:58 BP 98/60 04/28/23 13:58 Pulse Ox 86 L 04/28/23 13:58 Oxygen Delivery Method Nasal Cannula 04/28/23 13:58 Oxygen Flow Rate 3 04/28/23 13:58 BMI result Body Mass Index 12.9 Const General: no acute distress and alert Nutritional Appearance: underweight Orientation/consciousness: Other orientation findings ( oriented) HEENT Head: Yes atraumatic Eyes General: appearance normal, both eyes and all related structures Sclerae: sclerae normal EOM: EOMs intact bilaterally Neck Neck: Yes supple Lymphatic: no lymphadenopathy noted Resp Effort & Inspection: normal respiratory effort and no use of accessory muscles Auscultation: clear to auscultation bilaterally Cardio Rate: regular rate Rhythm: regular rhythm Heart sounds: no gallops, no murmurs and no rubs Skin General skin exam: other ( warm) Extrem General: No clubbing, No cyanosis and No edema Assessment & Plan Assessment & Plan (1) COPD, severe: Code(s): J44.9 - Chronic obstructive pulmonary disease, unspecified Plan: End-stage COPD on maximum medical therapy. Poor tolerance of clonazepam for air trapping, will switch to then eggs. Continue DuoNeb down, will add Megace. (2) Oxygen dependent: Code(s): Z99.81 - Dependence on supplemental oxygen Plan: Continue supplemental oxygen to maintain O2 saturation of 88-92%. Medications: New alprazolam (Xanax) 0.5 mg PO TID PRN 30 tabs 0RF anxiety 30 days megestrol 200 mg (5 mL) PO BID 300 mL 0RF 30 days Discontinued clonazepam Discontinued Reason: Doctor's Order 0.5 mg PO BID PRN 60 tabs 3RF anxiety 30 days Coding Level of Care Code Est Pt Level 4 (70880) Diagnoses COPD, severe J44.9 Oxygen dependent Z99.81
== END 2023-04-28 14:26 | disposition home or self-care (01) ==
PROVIDERS: PCP Internal Medicine; Visit Provider Internal Medicine Pulmonary Disease
DX: J44.9 Chronic obstructive pulmonary disease, unspecified (principal); Z99.81 Dependence on supplemental oxygen
CPT/HCPCS: 99214

== ENCOUNTER → 2023-04-28 13:50 | Outpatient (BNVA) | payer OTHER, SELFPAY | PROVIDERS: PCP Internal Medicine; Visit Provider Internal Medicine Pulmonary Disease ==

== ENCOUNTER 2023-06-22 14:17 | Outpatient (AMB) | payer OTHER, SELFPAY ==
[2023-06-22 14:19] VITALS: BP 107/70; PULSE 101; O2SAT 96; BMI 13.9
--- NOTE | 2023-06-22 14:19 | MHC.OFFVIS ---
Intake Vital Signs 06/22/23 14:19 Height 5 ft 2 in Weight 76 lb 0.952 oz BMI 13.9 BP 107/70 Blood Pressure Location Lt brachial Position Sitting Pulse 101 H Pulse Source Doppler Pulse Oximetry (%) 96 Oxygen Delivery Method Nasal Cannula Oxygen Flow Rate 3 Intake Visit Reasons: copd Intake Note: [facility] 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 Patient returns to follow-up complaining of slowly worsening dyspnea despite using Spiriva, Symbicort, theophylline, duo nebs, and albuterol MDI. Her pulmonary nodule biopsy was canceled by Interventional Radiology as it was negative on PET scan. She continues on dronabinol with some improvement in appetite and weight, now up to 77 lbs. PFSH Family History Other Mental health disorder Substance use disorder Social History Housing: House Alcohol intake: current Alcohol intake frequency: a few times a week Patient Tobacco Use Status: Current everyday Tobacco user Cigarette Packs Per Day: 0.5 e-Cigarette/Vaping Use: Never Used service: No Current occupational status: unemployed Cognitive needs: No Hearing needs: No Vision needs: No Review of Systems Const Denies daytime sleepiness, Denies excessive sweating, Denies fatigue, Denies fever(s), Denies lethargy, Denies malaise, Denies night sweats, Denies snoring and Denies weight loss Eyes Denies blurry vision and Denies itchy eyes ENT Denies nasal congestion, Denies post nasal drip, Denies sinus pain, Denies sinus pressure and Denies other ( Thrush) Card Denies chest pain, Denies pedal edema, Denies dyspnea, Denies orthopnea and Denies paroxysmal nocturnal dyspnea Resp Denies cough, Denies hemoptysis, Denies excessive phlegm production, Denies dyspnea, Denies snoring and Denies wheezing GI Denies abdominal pain and Denies heartburn Musc Denies myalgias, Denies arthralgias and Denies joint swelling Skin/Breast Denies rash Neuro Denies memory loss and Denies seizure-like activity Psych Denies abnormal sleep pattern, Denies anxiety and Denies memory loss Endo Denies excessive sweating, Denies fatigue and Denies heat intolerance Michael/Lymph Denies easy bruising Aller/Immun Denies itchy eyes, Denies seasonal rhinorrhea and Denies wheezing Physical Exam Vital Signs: Last Vital Signs Pulse 101 H 06/22/23 14:19 BP 107/70 06/22/23 14:19 Pulse Ox 96 06/22/23 14:19 Oxygen Delivery Method Nasal Cannula 06/22/23 14:19 Oxygen Flow Rate 3 06/22/23 14:19 BMI result Body Mass Index 13.9 Const General: no acute distress and alert Nutritional Appearance: cachectic Orientation/consciousness: Other orientation findings ( oriented) HEENT Head: Yes atraumatic Eyes General: appearance normal, both eyes and all related structures Sclerae: sclerae normal EOM: EOMs intact bilaterally Neck Neck: Yes supple Lymphatic: no lymphadenopathy noted Resp Effort & Inspection: normal respiratory effort and no use of accessory muscles Auscultation: clear to auscultation bilaterally Cardio Rate: regular rate Rhythm: regular rhythm Heart sounds: no gallops, no murmurs and no rubs Skin General skin exam: other ( warm) Extrem General: No clubbing, No cyanosis and No edema Assessment & Plan Assessment & Plan (1) COPD, severe: Code(s): J44.9 - Chronic obstructive pulmonary disease, unspecified Plan: End-stage showed on maximum therapy with DuoNebs, Spiriva, Symbicort, and through often than. Continue current regimen. (2) Oxygen dependent: Code(s): Z99.81 - Dependence on supplemental oxygen Plan: Continue supplemental oxygen to maintain O2 saturation of 88-92%. (3) Pulmonary cachexia due to chronic obstructive pulmonary disease: Code(s): R64 - Cachexia; J44.9 - Chronic obstructive pulmonary disease, unspecified Plan: Some improvement in weight and appetite on dronabinol. Continue current regimen. Coding Level of Care Code Est Pt Level 4 (23153) Diagnoses COPD, severe J44.9 Oxygen dependent Z99.81 Pulmonary cachexia due to chronic obstructive pulmonary disease R64; J44.9
== END 2023-06-22 14:38 | disposition home or self-care (01) ==
PROVIDERS: PCP Internal Medicine; Visit Provider Internal Medicine Pulmonary Disease
DX: J44.9 Chronic obstructive pulmonary disease, unspecified (principal); Z99.81 Dependence on supplemental oxygen; R64 Cachexia
CPT/HCPCS: 99214

== ENCOUNTER → 2023-06-22 14:17 | Outpatient (BNVA) | payer OTHER, SELFPAY | PROVIDERS: PCP Internal Medicine; Visit Provider Internal Medicine Pulmonary Disease ==